=== PATIENT | female | born 1970 | race Caucasian/White ===

== ENCOUNTER 2021-04-13 03:59 | Emergency (ER) | payer MEDICAID, OTHER ==
[~2021-04-13] VITALS: Ht 160 cm; Wt 70.3 kg
--- NOTE | 2021-04-13 04:05 | NUR ---
Pt brought back to [facility] by director electronics [employer]. Pt has good color, temp and appearance, otherwise completely healthy individual with no major health issues. Sitting on gurney awaiting EDMD eval.
--- NOTE | 2021-04-13 04:07 | NUR ---
EDMD at pt bedside to assess pt. After observing the tymponic membrane, Dr. Jernigan determined that the ear canal was completely free of FB, and that besides some slight irritation from over irrigating and flushing the ear in an attempt to remove supposed FB, the ear canal was completely clear.
--- NOTE | 2021-04-13 04:18 | NUR ---
EDMD DCed pt home with some aftercare instructions and a list of ENT referrals to follow up during busness hours if problem persists. Pt denies any pain or discomfort. No s/sx of distress present.
[2021-04-13 04:36] VITALS: BP 107/64
== END 2021-04-13 04:18 | disposition home or self-care (01) ==
LOC: ER 04:02
DX: Z71.1 Person with feared health complaint in whom no diagnosis is made (principal); F17.210 Nicotine dependence, cigarettes, uncomplicated
CPT/HCPCS: A4663